=== PATIENT | female | born 1985 | race Caucasian/White ===

== ENCOUNTER 2019-07-17 16:50 | Emergency (ER) | payer BC ==
[2019-07-17] MEDS ORDERED: Ondansetron ODT 4 MG TAB ONE (17:31)
[2019-07-17] MEDS ORDERED: Acetaminophen 500 MG TAB ONE (17:31)
== END 2019-07-17 19:00 | disposition home or self-care (01) ==
LOC: ERS 16:50
DX: J11.1 Influenza due to unidentified influenza virus with other respiratory manifestations (principal); R11.0 Nausea; F41.9 Anxiety disorder, unspecified; F32.9 Major depressive disorder, single episode, unspecified
CPT/HCPCS: 99283; Q0162